=== PATIENT | female | born 1955 | race Caucasian/White ===

== ENCOUNTER 2022-09-17 10:24 | Outpatient (CLI) | payer BC, SELFPAY ==
--- NOTE | 2022-09-17 10:45 | CRLHL7_ITS ---
For Patients: As a result of the Century Cures Act, medical imaging exams and procedure reports are released immediately into your electronic medical record. You may view this report before your referring provider. If you have questions, please contact your health care provider. INDICATION: RIGHT THYROID NODULE COMPARISON: 08/12/2021 TECHNIQUE: Jackson scale and color Doppler images were acquired of the thyroid gland. FINDINGS: Postop changes of left thyroidectomy. Right thyroid lobe measures 4.7 x 1.4 x 1.6 cm. Isthmus measures 3 millimeters. No adenopathy. Normal vascularity. Stable subtle hypoechoic nodule within the midportion of the right thyroid lobe measuring 8 x 4 x 8 millimeters. IMPRESSION: Stable 8 millimeter right thyroid lobe nodule. Dictated by Sb Dumont MD @ 09/17/2022 1:04:41 PM (Electronically Signed)
== END 2022-09-17 10:25 | disposition home or self-care (01) ==
PROVIDERS: PCP Internal Medicine; Visit Provider Surgery
DX: E04.1 Nontoxic single thyroid nodule (principal)
CPT/HCPCS: 76536

== ENCOUNTER 2024-09-22 11:54 | Outpatient (CLI) | payer MEDICARE, BC, SELFPAY ==
--- NOTE | 2024-09-22 12:15 | CRLHL7_ITS ---
For Patients: As a result of the Century Cures Act, medical imaging exams and procedure reports are released immediately into your electronic medical record. You may view this report before your referring provider. If you have questions, please contact your health care provider. INDICATION: nontoxic thyroid nodule COMPARISON: 09/17/2022 TECHNIQUE: Jackson scale and color Doppler images were acquired of the thyroid gland. FINDINGS: Ill-defined nodule within the right thyroid lobe measures 6 x 4 x 7 millimeters, previously measuring 8 x 4 x 8 millimeters. Isthmus measures 2.8 millimeters. The right lobe measures 4.9 x 1.7 x 1.7 cm and the left lobe is absent. The color Doppler images demonstrate normal vascularity. There is no evidence of cervical lymphadenopathy or parathyroid mass. IMPRESSION: Stable sub cm nodule right thyroid lobe. Dictated by Sb Dumont MD @ 09/22/2024 1:23:58 PM (Electronically Signed)
== END 2024-09-22 11:55 | disposition home or self-care (01) ==
LOC: US 11:57
PROVIDERS: PCP Internal Medicine; Visit Provider Surgery
DX: E04.1 Nontoxic single thyroid nodule (principal)
CPT/HCPCS: 76536

== ENCOUNTER 2024-12-30 08:21 | Outpatient (CLI) | payer MEDICARE, BC, SELFPAY ==
--- NOTE | 2024-12-30 08:45 | CRLHL7_ITS ---
For Patients: As a result of the Century Cures Act, medical imaging exams and procedure reports are released immediately into your electronic medical record. You may view this report before your referring provider. If you have questions, please contact your health care provider. BILATERAL SCREENING MAMMOGRAM WITH COMPUTER-AIDED DETECTION AND TOMOSYNTHESIS TECHNIQUE: CC and MLO views were obtained. These mammographic images have been obtained using full-field digital technique. These mammographic images were interpreted with the benefit of computer-aided detection. Breast Tomosynthesis was used in this interpretation. COMPARISON FILM: 08/06/21, 06/22/20, 10/29/18. FINDINGS: There are scattered areas of fibroglandular density. IMPRESSION: There is no radiographic evidence for malignancy. ASSESSMENT: BI-RADS Category 1: Negative RECOMMENDATION: Routine screening mammogram in 1 year. A lay language report of this examination will be provided to the patient. Sb Dumont M.D. Diagnostic Radiologist [email or web address] SP/Dictated by: Sb Dumont MD @ 12/30/2024 12:49:00 PM (Electronically Signed)
== END 2024-12-30 08:22 | disposition home or self-care (01) ==
LOC: MAMMO 08:24
PROVIDERS: PCP Internal Medicine; Visit Provider Internal Medicine
DX: Z12.31 Encounter for screening mammogram for malignant neoplasm of breast (principal)
CPT/HCPCS: 77063; 77067; 80061; 82947; 84443

== ENCOUNTER 2024-12-30 10:14 | Outpatient (CLI) | payer MEDICARE, BC, SELFPAY | END 2024-12-30 10:15 | disposition home or self-care (01) | PROVIDERS: PCP Internal Medicine; Visit Provider Registered Nurse | DX: E78.5 Hyperlipidemia, unspecified (principal); Z13.29 Encounter for screening for other suspected endocrine disorder; Z13.1 Encounter for screening for diabetes mellitus; Z13.6 Encounter for screening for cardiovascular disorders | CPT/HCPCS: 80061; 82947; 84443 ==

== ENCOUNTER 2025-04-26 13:32 | Outpatient (CLI) | payer MEDICARE, BC, SELFPAY ==
--- NOTE | 2025-04-26 14:00 | CRLHL7_ITS ---
For Patients: As a result of the Century Cures Act, medical imaging exams and procedure reports are released immediately into your electronic medical record. You may view this report before your referring provider. If you have questions, please contact your health care provider. DXA BONE MINERAL DENSITY STUDY Reason for exam: Screening. Current height (in): 66. Weight (lb): 105. Menopause age: 54. Ethnicity: White. 1. Have you had a previous hip or vertebral fracture? No. 2. Have you had any fractures during your adult life which did not result from significant trauma (e.g., auto accident)? No. 3. Did either of your parents have a hip fracture? No. 4. Do you smoke? No. 5. Have you ever taken Glucocorticoids? No. 6. Do you have rheumatoid arthritis? No. 7. Do you have secondary osteoporosis? No. 8. Do you drink 3 or more alcoholic drinks per day? No. 9. Are you being treated for osteoporosis? No. 10. Have you ever taken any of the following medications: Actonel, Evista, Fosamax, Miacalcin, Reclast, Boniva, Forteo, HRT (i.e. estrogen/hormone therapy), Protelos, Prolia, Vitamin D, Calcium, other ??? please specify. ANSWER: Yes, vitamin D. 11. Do you have any of the following medical conditions: Anorexia or bulimia, asthma or emphysema, end stage renal disease, hyperparathyroidism, any seizure disorders, cancer, inflammatory bowel diseases, hysterectomy, other ??? please specify. ANSWER: Yes, breast cancer. 12. What was your maximum height (inches)? 66.5. 13. Do you perform weight bearing exercise regularly? No. 14. Do you regularly consume dairy products? No. 15. Do you drink caffeinated beverages? Yes. 16. At what age did your period start? 15. 17. Are you premenopausal? No. 18. How many full-term pregnancies have you had? 4. 19. Have you ever missed your period for more than 6 months in a row (not including or menopause)? No. TECHNIQUE: Bone mineral density study was performed using the [employer]. FINDINGS: The results of the study expressed as bone mineral density (BMD) are as follows: Lumbar spine L1 to L4: BMD: 0.854 g/cm2. T-score: -1.8. Z-score: 0.3. Neck Left: BMD: 0.686 g/cm2. T-score: -1.5. Z-score: 0.2. Right: BMD: 0.702 g/cm2. T-score: -1.3. Z-score: 0.4. Total Left: BMD: 0.851 g/cm2. T-score: -0.7. Z-score: 0.7. Right: BMD: 0.790 g/cm2. T-score: -1.2. Z-score: 0.2. IMPRESSION: Osteopenia. *Comparison exams done prior to 03/2020 were performed on different unit, [employer]. COMPARISON: Compared with scan of 10/03/2021, the bone mineral density has increased by 2.3 percent at the spine and decreased by 2.6 percent at the hip. Compared with scan of 08/06/2017, the bone mineral density has increased by 7.5 percent at the spine and no change at 0 percent at the hip. FRAX 10-year Fracture Risk Major Osteoporotic Fracture: 9.1 percent Hip Fracture: 1.1 percent Reported Risk Factors: [place] () Neck BMD=0.686, BMI=31.5 Sb Dumont M.D. Diagnostic Radiologist [email or web address] LASHAE/inder loving/Dictated by: Sb Dumont MD @ 04/27/2025 9:00:00 AM (Electronically Signed)
== END 2025-04-26 13:33 | disposition home or self-care (01) ==
LOC: RAD 13:33
PROVIDERS: PCP Registered Nurse; Visit Provider Registered Nurse
DX: Z13.820 Encounter for screening for osteoporosis (principal); M85.89 Other specified disorders of bone density and structure, multiple sites
CPT/HCPCS: 77080

== ENCOUNTER 2025-05-23 08:30 | Outpatient (RCR) | payer MEDICARE, BC, SELFPAY | END 2025-08-02 07:45 | disposition home or self-care (01) | PROVIDERS: PCP Registered Nurse; Visit Provider Registered Nurse | DX: S83.8X1D Sprain of other specified parts of right knee, subsequent encounter (principal); M17.11 Unilateral primary osteoarthritis, right knee; M25.561 Pain in right knee; Z51.89 Encounter for other specified aftercare | CPT/HCPCS: 97110; 97112; 97161 ==